=== PATIENT | female | born 1935 | race Hispanic/Latino ===

== ENCOUNTER 2020-04-05 12:42 | Inpatient (IN) | payer MEDICARE ==
[~2020-04-05] VITALS: Ht 152.4 cm; Wt 69.2 kg
[2020-04-05 13:04] LABS: BASOPHILS % (AUTO) 0.6 % (0.0-5.0); EOSINOPHILS % (AUTO) 0.5 % (0.0-8.0); HEMATOCRIT 37.9 % (36-48); LYMPHOCYTES % (AUTO) 25.3 % (21.0-51.0); MEAN CORPUSCULAR HEMOGLOBIN 29.2 pg (27.0-33.0); MEAN CORPUSCULAR HGB CONC 31.9 g/dL (32.0-36.0); MEAN CORPUSCULAR VOLUME 91.5 fL (79-99); MONOCYTES % (AUTO) 7.1 % (3.0-13.0); NEUTROPHILS % (AUTO) 65.9 % (40.0-77.0); PLATELET COUNT (AUTO) 272 K/uL (130-400); RED BLOOD CELL COUNT(AUTO) 4.14 MIL/uL (4.00-5.50); RED CELL DISTRIBUTION WIDTH 19.7 % (11.0-15.5); WHITE BLOOD COUNT (AUTO) 15.8 K/uL (4.8-10.8)
[2020-04-05 13:10] LABS: APPEARANCE,URINE Cloudy (CLEAR); BILIRUBIN,URINE Negative (NEGATIVE); COLOR,URINE Dark Yellow (YELLOW); GLUCOSE, URINE (UA) Negative (NEGATIVE); KETONES,URINE Negative (NEGATIVE); LEUKOCYTE ESTERASE ,URINE Large (NEGATIVE); NITRATE,URINE Negative (NEGATIVE); OCCULT BLOOD,URINE Nonhemolyzed Trace (NEGATIVE); PH,URINE 5.5 (5.0-8.0); PROTEIN,URINE POS 1+ mg/dL (NEGATIVE)
[2020-04-05] MEDS: SODIUM CHLORIDE 0.9% 1000ML 1,000 ML IV SCH (13:15)
[2020-04-05] MEDS ORDERED: ONDANSETRON HCL 4 MG/2 ML VIAL IVP PRN (13:15)
[2020-04-05] MEDS ORDERED: LACTULOSE 20 GM/30 ML UDCUP PO PRN (13:15)
[2020-04-05] MEDS: ZOSYN 3.375GM+NS 50ML 50 ML IV SCH ×2 (13:15→21:15)
[2020-04-05] MEDS ORDERED: ACETAMINOPHEN 325 MG TAB PO PRN (13:15)
[2020-04-05] MEDS ORDERED: DIPHENHYDRAMINE HCL 25 MG CAPSULE PO PRN (13:15)
[2020-04-05 13:19] LABS: CREATININE 1.7 mg/dL (0.5-1.5); POTASSIUM 4.1 mmol/L (3.5-5.1)
[2020-04-05 13:24] LABS: ALBUMIN 2.5 g/dL (3.5-5.0); BILIRUBIN,TOTAL 0.9 mg/dL (0.2-1.0); TOTAL PROTEIN, SERUM 7.1 g/dL (6.0-8.3)
[2020-04-05 13:28] LABS: HEMOGLOBIN A1C 5.6 % (4.0-6.0)
[2020-04-05 13:29] LABS: RBC,URINE 0-1 /HPF (0-1)
[2020-04-05 13:30] LABS: BACTERIA,URINE Few /HPF (None Seen); SQUAMOUS EPITHELIAL CELL,UR 0-2 /HPF (0-2); WBC,URINE 26-50 /HPF (0-1); YEAST,URINE BUDDING Few /HPF (None Seen)
[2020-04-05] MEDS ORDERED: CEFTRIAXONE SODIUM 1 GM ONE (14:21)
[2020-04-05] MEDS ORDERED: SODIUM CHLORIDE 0.9% 1000ML 1,000 ML IV ONE (17:42)
[2020-04-05] MEDS ORDERED: ZOSYN 3.375GM+NS 50ML 50 ML IV ONE (17:43)
[2020-04-05] MEDS ORDERED: FAMOTIDINE 20MG TAB 20 MG TAB ONE (19:28)
[2020-04-05] MEDS: FAMOTIDINE 20MG TAB 20 MG TAB PO SCH (21:00)
[2020-04-06] VITALS (7 sets, daily range): BP systolic 111–143; BP diastolic 61–79
[2020-04-06] MEDS ORDERED: IPRATROPIUM/ALBUTEROL SULFATE 3 ML SOLUTION IH PRN (00:30)
[2020-04-06] MEDS ORDERED: DiphenhydrAMINE HCL 50 MG/ML VIAL IV PRN (00:30)
[2020-04-06] MEDS ORDERED: LIDOCAINE HCL-MPF 1% 2ML VIAL IV PRN (00:30)
[2020-04-06] MEDS ORDERED: POTASSIUM CHLORIDE 20MEQ/100ML 100 ML IV PRN (00:30)
[2020-04-06] MEDS ORDERED: GUAIFENESIN-DM 200/20 MG 10 ML PO PRN (00:30)
[2020-04-06] MEDS ORDERED: NITROGLYCERIN 0.4 MG SL TAB SL PRN (00:30)
[2020-04-06] MEDS ORDERED: CLONIDINE HCL 0.1 MG TABLET PO PRN (00:30)
[2020-04-06] MEDS: SODIUM CHLORIDE 0.9% 1000ML 1,000 ML IV SCH ×3 (04:21→19:15)
[2020-04-06] MEDS: ZOSYN 3.375GM+NS 50ML 50 ML IV SCH ×3 (04:21→20:08)
[2020-04-06 08:36] LABS: BASOPHILS % (AUTO) 0.7 % (0.0-5.0); EOSINOPHILS % (AUTO) 1.3 % (0.0-8.0); HEMATOCRIT 28.2 % (36-48); LYMPHOCYTES % (AUTO) 27.2 % (21.0-51.0); MEAN CORPUSCULAR HEMOGLOBIN 29.8 pg (27.0-33.0); MEAN CORPUSCULAR HGB CONC 32.3 g/dL (32.0-36.0); MEAN CORPUSCULAR VOLUME 92.5 fL (79-99); MONOCYTES % (AUTO) 7.8 % (3.0-13.0); NEUTROPHILS % (AUTO) 61.9 % (40.0-77.0); PLATELET COUNT (AUTO) 199 K/uL (130-400); RED BLOOD CELL COUNT(AUTO) 3.05 MIL/uL (4.00-5.50); RED CELL DISTRIBUTION WIDTH 19.7 % (11.0-15.5); WHITE BLOOD COUNT (AUTO) 10.7 K/uL (4.8-10.8)
--- NOTE | 2020-04-06 09:00 | NUR ---
REPORTED TO ME LOW K OF 3.0, I INFORMED MARCELA ARNETT FOR HOSPITALIST AND WILL COVER PT WITH POTASSIUM PROTOCOL.
[2020-04-06 09:02] LABS: ALBUMIN 1.8 g/dL (3.5-5.0); BILIRUBIN,TOTAL 0.6 mg/dL (0.2-1.0); CREATININE 1.3 mg/dL (0.5-1.5); TOTAL PROTEIN, SERUM 5.3 g/dL (6.0-8.3)
[2020-04-06] MEDS: FAMOTIDINE 20MG TAB 20 MG TAB PO SCH ×2 (09:32→20:08)
[2020-04-06] MEDS ORDERED: LACT10SO9 PO (10:21)
--- NOTE | 2020-04-06 10:21 | NUR ---
REQUEST SENT TO [facility] FOR MEDICAL RECORDS AND GRAND DAUGHTER GAVE PERMISION TO REQUEST; SHE ALSO STATED ONLY HOME MED PT TAKES IS LACTULOSE.
[2020-04-06] MEDS: POTASSIUM CHLORIDE 10% ELIXIR 20 MEQ/15 ML UDCUP PO PRN ×3 (11:25→17:44)
--- NOTE | 2020-04-06 15:46 | NUR ---
CHART CHECK COMPLETED. Pt IS AN 84 Y.O. FEMALE ADMITTED SECONDARY TO AMS, DEHYDRATION, AND SEPSIS. Pt HAS A PAST MEDICAL HISTORY SIGNIFICANT FOR DM, HYPERTENSION, COVID JANUARY 2020, CHOLECYSTECTOMY. Pt CURRENTLY ON REGULAR TEXTURE,THIN LIQUID DIET (HEART HEALTHY). PLEASE REQUEST FORMAL SKILLED SPEECH/SWALLOW EVALUATION IF Pt PRESENTS WITH +S/S OF ASPIRATION SUCH COUGH RESPONSE, THROAT CLEAR, OR WET VOCAL QUALITY DURING P.O. Addendum: 04/06/20 at 1548 by TRINO BOYKIN, [facility] Amended: Links added.
[2020-04-07] MEDS: SODIUM CHLORIDE 0.9% 1000ML 1,000 ML IV SCH (04:00)
[2020-04-07 04:13] VITALS: BP 142/80
[2020-04-07] MEDS: ZOSYN 3.375GM+NS 50ML 50 ML IV SCH ×3 (04:16→21:13)
[2020-04-07 04:49] LABS: BASOPHILS % (AUTO) 0.8 % (0.0-5.0); EOSINOPHILS % (AUTO) 2.7 % (0.0-8.0); HEMATOCRIT 31.5 % (36-48); LYMPHOCYTES % (AUTO) 32.5 % (21.0-51.0); MEAN CORPUSCULAR HEMOGLOBIN 29.2 pg (27.0-33.0); MEAN CORPUSCULAR HGB CONC 31.4 g/dL (32.0-36.0); MEAN CORPUSCULAR VOLUME 92.9 fL (79-99); MONOCYTES % (AUTO) 7.4 % (3.0-13.0); NEUTROPHILS % (AUTO) 55.5 % (40.0-77.0); PLATELET COUNT (AUTO) 240 K/uL (130-400); RED BLOOD CELL COUNT(AUTO) 3.39 MIL/uL (4.00-5.50); RED CELL DISTRIBUTION WIDTH 19.9 % (11.0-15.5); WHITE BLOOD COUNT (AUTO) 12.7 K/uL (4.8-10.8)
[2020-04-07 05:08] LABS: BILIRUBIN,TOTAL 0.7 mg/dL (0.2-1.0); CREATININE 1.2 mg/dL (0.5-1.5); POTASSIUM 3.9 mmol/L (3.5-5.1); TOTAL PROTEIN, SERUM 5.8 g/dL (6.0-8.3)
[2020-04-07] MEDS: FAMOTIDINE 20MG TAB 20 MG TAB PO SCH ×2 (08:03→21:13)
[2020-04-07 08:55] VITALS: BP 133/69
[2020-04-07 10:09] LABS: APPEARANCE,URINE CLOUDY (CLEAR); BILIRUBIN,URINE NEGATIVE (NEGATIVE); COLOR,URINE YELLOW (YELLOW); GLUCOSE, URINE (UA) NEGATIVE (NEGATIVE); KETONES,URINE NEGATIVE (NEGATIVE); LEUKOCYTE ESTERASE ,URINE LARGE (NEGATIVE); NITRATE,URINE NEGATIVE (NEGATIVE); OCCULT BLOOD,URINE LARGE (NEGATIVE); PH,URINE 6.5 (5.0-8.0); PROTEIN,URINE 30 mg/dL (NEGATIVE); UROBILINOGEN,URINE 0.2 mg/dL (0.2-1.0)
[2020-04-07 10:16] LABS: BACTERIA,URINE Few /HPF (None Seen); SQUAMOUS EPITHELIAL CELL,UR Few /HPF (0-2); WBC,URINE 51-100 /HPF (0-1)
[2020-04-07] MEDS ORDERED: FLUCONAZOLE 100 MG TAB PO SCH (12:45)
[2020-04-07 13:33] VITALS: BP 129/74
[2020-04-07 16:42] VITALS: BP 118/66
[2020-04-07 20:26] VITALS: BP 127/66
[2020-04-08] VITALS (7 sets, daily range): BP systolic 95–126; BP diastolic 53–69
[2020-04-08 04:19] LABS: BASOPHILS % (AUTO) 0.7 % (0.0-5.0); EOSINOPHILS % (AUTO) 3.7 % (0.0-8.0); HEMATOCRIT 36.4 % (36-48); LYMPHOCYTES % (AUTO) 33.5 % (21.0-51.0); MEAN CORPUSCULAR HEMOGLOBIN 29.4 pg (27.0-33.0); MEAN CORPUSCULAR HGB CONC 31.9 g/dL (32.0-36.0); MEAN CORPUSCULAR VOLUME 92.2 fL (79-99); MONOCYTES % (AUTO) 6.5 % (3.0-13.0); NEUTROPHILS % (AUTO) 54.7 % (40.0-77.0); PLATELET COUNT (AUTO) 259 K/uL (130-400); RED BLOOD CELL COUNT(AUTO) 3.95 MIL/uL (4.00-5.50); RED CELL DISTRIBUTION WIDTH 19.9 % (11.0-15.5); WHITE BLOOD COUNT (AUTO) 13.7 K/uL (4.8-10.8)
[2020-04-08 04:50] LABS: ALBUMIN 2.2 g/dL (3.5-5.0); BILIRUBIN,TOTAL 0.6 mg/dL (0.2-1.0); POTASSIUM 4.2 mmol/L (3.5-5.1); TOTAL PROTEIN, SERUM 6.5 g/dL (6.0-8.3)
[2020-04-08] MEDS: ZOSYN 3.375GM+NS 50ML 50 ML IV SCH ×3 (05:22→20:30)
--- NOTE | 2020-04-08 05:33 | NUR ---
IV restart to left forearm, 22 francis with good blood return. Dressing applied per protocol. AM care provided. No new variance this shift, pt remained A/O x 1. Blood sugar is 78 this morning. Apple juice given, pending breakfast.
[2020-04-08] MEDS: FAMOTIDINE 20MG TAB 20 MG TAB PO SCH ×2 (08:35→20:31)
--- NOTE | 2020-04-08 11:26 | NUR ---
UPDATED DAUGHTER ON DC PLANS. NO CONSENT ON ANY REFERRAL TO SNF YET. SUGGESTED [facility]NR IN [place] BECAUSE IT IS IN NETWORK WIHT THE INSURANCE, BUT GRANDDAUGHTER MARINA DID NOT WANT TO CONSDER YET. WANTS TO INVESTIGATE ALL FACILITIES THAT TAKE ALLWELL. CALL TO DAVID MAHAN [phone]- THEY DO CALL TO KATIE MCKEON [phone]- THEY DO NOT CALL TO [facility]-NO NOT GAYATHRI VOSS, NOT THIS INFO PASSED TO MARINA VIA TEXT. AWAITING RESPONSE Addendum: 04/08/20 at 1153 by ZOE CORTES RN CM Amended: Links added.
[2020-04-08] MEDS: FLUCONAZOLE 100 MG TAB PO SCH (12:38)
--- NOTE | 2020-04-08 16:30 | NUR ---
NO CONSENT YET FOR SNF
--- NOTE | 2020-04-08 20:00 | NUR ---
assessment patient awake, alert, ox1, no sob, no c/o pain at this time, no sob at this time, turn patient q2 hours, f/c to gravity drainage with cloudy urine, keep siderails up x3 for safety precautions and bedalarm intact
[2020-04-08] MEDS: LACTULOSE 20 GM/30 ML UDCUP PO SCH (20:31)
[2020-04-09 04:02] VITALS: BP 103/52
[2020-04-09] MEDS: ZOSYN 3.375GM+NS 50ML 50 ML IV SCH ×3 (05:20→21:45)
[2020-04-09 06:21] LABS: BASOPHILS % (AUTO) 0.8 % (0.0-5.0); EOSINOPHILS % (AUTO) 6.4 % (0.0-8.0); LYMPHOCYTES % (AUTO) 37.2 % (21.0-51.0); MEAN CORPUSCULAR HEMOGLOBIN 29.2 pg (27.0-33.0); MEAN CORPUSCULAR HGB CONC 32.3 g/dL (32.0-36.0); MEAN CORPUSCULAR VOLUME 90.6 fL (79-99); MONOCYTES % (AUTO) 6.4 % (3.0-13.0); NEUTROPHILS % (AUTO) 48.1 % (40.0-77.0); PLATELET COUNT (AUTO) 233 K/uL (130-400); RED BLOOD CELL COUNT(AUTO) 3.42 MIL/uL (4.00-5.50); RED CELL DISTRIBUTION WIDTH 19.9 % (11.0-15.5); WHITE BLOOD COUNT (AUTO) 10.6 K/uL (4.8-10.8)
[2020-04-09 06:43] LABS: ALBUMIN 1.8 g/dL (3.5-5.0); BILIRUBIN,TOTAL 0.4 mg/dL (0.2-1.0); POTASSIUM 3.3 mmol/L (3.5-5.1); TOTAL PROTEIN, SERUM 5.3 g/dL (6.0-8.3)
[2020-04-09] MEDS: POTASSIUM CHLORIDE 10% ELIXIR 20 MEQ/15 ML UDCUP PO PRN ×3 (06:52→18:24)
[2020-04-09] MEDS: LACTULOSE 20 GM/30 ML UDCUP PO SCH ×2 (07:56→19:25)
[2020-04-09] MEDS: FAMOTIDINE 20MG TAB 20 MG TAB PO SCH ×2 (07:57→20:07)
[2020-04-09] MEDS: FLUCONAZOLE 100 MG TAB PO SCH (07:57)
[2020-04-09 08:00] VITALS: BP 122/70
--- NOTE | 2020-04-09 09:00 | NUR ---
SNF/HNR: Received call this am from andrew Kilgore. She mentions that family has decided to refer pt to [facility]. telephone consent obtained. Clinical/PASRR faxed to [facility]. Spoke talib Ramirez-Liaison, she mentions will review information and submit to insurance for auth. CN updated. CM to continue to follow.
[2020-04-09 11:00] VITALS: BP 125/73
[2020-04-09 16:00] VITALS: BP 124/65
[2020-04-09 20:00] VITALS: BP 107/63
--- NOTE | 2020-04-09 20:00 | NUR ---
assessment patient more awake and talkative, ox1, no sob, no c/o pain at this time, turn patient q2 hours, no teaching performed , unable to comprehend teaching
[2020-04-09 23:36] VITALS: BP 120/70
[2020-04-10 04:00] VITALS: BP 113/80
[2020-04-10 04:11] LABS: BASOPHILS % (AUTO) 0.9 % (0.0-5.0); EOSINOPHILS % (AUTO) 6.1 % (0.0-8.0); HEMATOCRIT 33.3 % (36-48); MEAN CORPUSCULAR HEMOGLOBIN 28.9 pg (27.0-33.0); MEAN CORPUSCULAR HGB CONC 31.5 g/dL (32.0-36.0); MEAN CORPUSCULAR VOLUME 91.7 fL (79-99); MONOCYTES % (AUTO) 8.2 % (3.0-13.0); NEUTROPHILS % (AUTO) 49.5 % (40.0-77.0); PLATELET COUNT (AUTO) 222 K/uL (130-400); RED BLOOD CELL COUNT(AUTO) 3.63 MIL/uL (4.00-5.50); RED CELL DISTRIBUTION WIDTH 20.2 % (11.0-15.5); WHITE BLOOD COUNT (AUTO) 13.6 K/uL (4.8-10.8)
[2020-04-10 04:28] LABS: CREATININE 1.1 mg/dL (0.5-1.5); POTASSIUM 4.1 mmol/L (3.5-5.1)
[2020-04-10] MEDS: ZOSYN 3.375GM+NS 50ML 50 ML IV SCH ×3 (05:02→21:49)
[2020-04-10 08:00] VITALS: BP 105/50
[2020-04-10] MEDS: LACTULOSE 20 GM/30 ML UDCUP PO SCH ×2 (10:19→19:53)
[2020-04-10] MEDS: FLUCONAZOLE 100 MG TAB PO SCH (10:19)
[2020-04-10] MEDS: FAMOTIDINE 20MG TAB 20 MG TAB PO SCH ×2 (10:19→19:54)
[2020-04-10 11:00] VITALS: BP 105/53
[2020-04-10 16:00] VITALS: BP 125/71
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
[2020-04-10 19:56] VITALS: BP 111/60
[2020-04-10 23:56] VITALS: BP 122/73
[2020-04-11 03:41] VITALS: BP 123/66
[2020-04-11] MEDS: ZOSYN 3.375GM+NS 50ML 50 ML IV SCH ×3 (04:42→22:54)
[2020-04-11 05:01] LABS: BASOPHILS % (AUTO) 0.8 % (0.0-5.0); EOSINOPHILS % (AUTO) 6.9 % (0.0-8.0); HEMATOCRIT 32.4 % (36-48); LYMPHOCYTES % (AUTO) 25.8 % (21.0-51.0); MEAN CORPUSCULAR HEMOGLOBIN 29.1 pg (27.0-33.0); MEAN CORPUSCULAR HGB CONC 32.1 g/dL (32.0-36.0); MEAN CORPUSCULAR VOLUME 90.8 fL (79-99); MONOCYTES % (AUTO) 8.1 % (3.0-13.0); PLATELET COUNT (AUTO) 202 K/uL (130-400); RED BLOOD CELL COUNT(AUTO) 3.57 MIL/uL (4.00-5.50); RED CELL DISTRIBUTION WIDTH 19.9 % (11.0-15.5); WHITE BLOOD COUNT (AUTO) 14.5 K/uL (4.8-10.8)
[2020-04-11 05:10] LABS: CREATININE 1.1 mg/dL (0.5-1.5)
[2020-04-11 08:33] VITALS: BP 115/66
[2020-04-11] MEDS: LACTULOSE 20 GM/30 ML UDCUP PO SCH ×2 (09:14→19:31)
[2020-04-11] MEDS: FLUCONAZOLE 100 MG TAB PO SCH (09:14)
[2020-04-11] MEDS: FAMOTIDINE 20MG TAB 20 MG TAB PO SCH ×2 (09:14→19:31)
--- NOTE | 2020-04-11 09:15 | NUR ---
CHART REVIEWED, ANTICIPATING DISCHARGE TO [facility] TODAY [facility], WILL SEND UPDATED AND MED REC WHEN AVAILABLE AND WILL ARRANGE EMS TRANSPORT. WILL FOLLOW WITH MENG NUNES. KATELIN, Addendum: 04/11/20 at 0917 by ZOE CORTES RN CM Amended: Links added.
[2020-04-11 11:38] VITALS: BP 106/72
[2020-04-11 17:00] VITALS: BP 108/50
[2020-04-11 20:00] VITALS: BP 101/62
[2020-04-11 23:33] VITALS: BP 121/63
--- NOTE | 2020-04-12 01:25 | NUR ---
COVID POSITIVE PATIENT'S COVID-19 PCR RESULTS CAME BACK POSITIVE. Gonzalo THOMASON NOTIFIED OF RESULTS AND GAVE ORDERS TO TRANSFER TO COVID UNIT. REPORT GIVEN TO SPARKLE NUNES AND PATIENT WITH ALL BELONGINGS TRANSPORTED TO ROOM 432. STAFF WILL INFORM FAMILY OF TRANSFER IN AM.
[2020-04-12 04:45] VITALS: BP 101/62
[2020-04-12] MEDS: ZOSYN 3.375GM+NS 50ML 50 ML IV SCH ×3 (05:25→20:04)
[2020-04-12 08:30] VITALS: BP 138/71
[2020-04-12] MEDS: LACTULOSE 20 GM/30 ML UDCUP PO SCH ×2 (09:26→20:04)
[2020-04-12] MEDS: FAMOTIDINE 20MG TAB 20 MG TAB PO SCH ×2 (09:26→20:04)
[2020-04-12] MEDS: FLUCONAZOLE 100 MG TAB PO SCH (09:26)
[2020-04-12 09:49] LABS: BASOPHILS % (AUTO) 0.8 % (0.0-5.0); EOSINOPHILS % (AUTO) 5.8 % (0.0-8.0); HEMATOCRIT 33.6 % (36-48); LYMPHOCYTES % (AUTO) 31.5 % (21.0-51.0); MEAN CORPUSCULAR HEMOGLOBIN 29.5 pg (27.0-33.0); MEAN CORPUSCULAR HGB CONC 32.4 g/dL (32.0-36.0); MEAN CORPUSCULAR VOLUME 90.8 fL (79-99); MONOCYTES % (AUTO) 7.1 % (3.0-13.0); NEUTROPHILS % (AUTO) 53.5 % (40.0-77.0); PLATELET COUNT (AUTO) 186 K/uL (130-400); RED CELL DISTRIBUTION WIDTH 19.8 % (11.0-15.5); WHITE BLOOD COUNT (AUTO) 12.8 K/uL (4.8-10.8)
[2020-04-12 10:03] LABS: CREATININE 1.1 mg/dL (0.5-1.5); POTASSIUM 3.8 mmol/L (3.5-5.1)
--- NOTE | 2020-04-12 11:07 | NUR ---
RDSCREEN - LOS X 7 Pt admitted with AMS, Dehydration, Sepsis. PMH of DM, HTN, UTI, Dementia, COVID-19. Pt tolerating Heart Healthy diet order with no report of GI distress, Fair PO intake at 50-75%. Recommend Ensure QD Recommend continue Heart Healthy diet order RD to continue to monitor. Please notify as additional nutrition concerns arise. Thank you.
[2020-04-12 12:15] VITALS: BP 109/67
--- NOTE | 2020-04-12 14:02 | NUR ---
CM Note: HNR pending approval CM spoke to Ashley Gracia, received covid result. Pt currently pending approval at this time. Send request to [facility] for EMS transport today, confirmation received. [facility] arranged and faxed for today, primary nurse to call [facility] once pt ready to DC. Primary nurse aware. CM to cont to follow up.
[2020-04-12 16:30] VITALS: BP 134/54
[2020-04-12 19:55] VITALS: BP 115/72
[2020-04-12 23:30] VITALS: BP 121/76
[2020-04-13 05:50] VITALS: BP 127/76
[2020-04-13] MEDS: ZOSYN 3.375GM+NS 50ML 50 ML IV SCH ×3 (06:08→19:59)
[2020-04-13 06:48] LABS: BASOPHILS % (AUTO) 0.8 % (0.0-5.0); EOSINOPHILS % (AUTO) 5.8 % (0.0-8.0); HEMATOCRIT 33.4 % (36-48); LYMPHOCYTES % (AUTO) 35.7 % (21.0-51.0); MEAN CORPUSCULAR HEMOGLOBIN 29.2 pg (27.0-33.0); MEAN CORPUSCULAR HGB CONC 32.3 g/dL (32.0-36.0); MEAN CORPUSCULAR VOLUME 90.3 fL (79-99); MONOCYTES % (AUTO) 8.8 % (3.0-13.0); NEUTROPHILS % (AUTO) 47.1 % (40.0-77.0); PLATELET COUNT (AUTO) 226 K/uL (130-400); RED CELL DISTRIBUTION WIDTH 19.9 % (11.0-15.5); WHITE BLOOD COUNT (AUTO) 15.1 K/uL (4.8-10.8)
[2020-04-13 07:28] LABS: CREATININE 1.2 mg/dL (0.5-1.5); POTASSIUM 3.4 mmol/L (3.5-5.1); THYROID STIMULATING HORMONE 2.96 uIU/mL (0.36-3.74)
[2020-04-13 08:00] VITALS: BP 119/65
[2020-04-13] MEDS: FLUCONAZOLE 100 MG TAB PO SCH (09:07)
[2020-04-13] MEDS: LACTULOSE 20 GM/30 ML UDCUP PO SCH ×2 (09:07→19:58)
[2020-04-13] MEDS: FAMOTIDINE 20MG TAB 20 MG TAB PO SCH ×2 (09:08→19:58)
[2020-04-13 09:37] LABS: ALBUMIN 2.1 g/dL (3.5-5.0); MAGNESIUM 2.3 mg/dL (1.80-2.40)
--- NOTE | 2020-04-13 12:19 | NUR ---
CM Note: HNR approval CM spoke to Ashley Gracia, pt has approval. EMS arranged and faxed for today, primary nurse to call [facility] once pt ready to DC. Primary nurse aware. Pt pending Dr Burns consult today re: AMS, confusion. CM to cont to follow up.
[2020-04-13 12:51] VITALS: BP 116/87
[2020-04-13 16:31] VITALS: BP 107/63
[2020-04-13 19:55] VITALS: BP 128/78
[2020-04-13] MEDS: ENOXAPARIN SODIUM 30 MG/0.3 ML SQ SCH (19:58)
[2020-04-13 23:05] VITALS: BP 116/71
[2020-04-14 04:02] VITALS: BP 109/72
[2020-04-14] MEDS: ZOSYN 3.375GM+NS 50ML 50 ML IV SCH ×3 (05:28→21:19)
[2020-04-14 06:51] LABS: CREATININE 1.3 mg/dL (0.5-1.5); MAGNESIUM 1.8 mg/dL (1.80-2.40); POTASSIUM 3.5 mmol/L (3.5-5.1)
[2020-04-14 08:30] VITALS: BP 124/78
[2020-04-14] MEDS: LACTULOSE 20 GM/30 ML UDCUP PO SCH ×2 (08:34→21:19)
[2020-04-14] MEDS: ENOXAPARIN SODIUM 30 MG/0.3 ML SQ SCH (08:34)
[2020-04-14] MEDS: FAMOTIDINE 20MG TAB 20 MG TAB PO SCH ×2 (08:34→21:19)
[2020-04-14] MEDS: FLUCONAZOLE 100 MG TAB PO SCH (08:34)
[2020-04-14] MEDS ORDERED: SODIUM CHLORIDE 0.9% 1000ML 1,000 ML IV ONE (11:00)
[2020-04-14 12:00] VITALS: BP 106/76
--- NOTE | 2020-04-14 13:19 | NUR ---
RD UPDATE Pt with Poor PO intake. No report of GI distress. Pt with AMS. WBC 15.1, GFR 41, BG 108, Ca 10.8, Alb 2.1. Recommend trial of Ensure TID with meals. RD to continue to monitor.
[2020-04-14 16:29] VITALS: BP 116/53
[2020-04-14] MEDS ORDERED: LACTATED RINGERS 1000ML 1,000 ML IV SCH (18:15)
[2020-04-14 20:26] VITALS: BP 124/68
[2020-04-14] MEDS: SODIUM CHLORIDE 0.9% 1000ML 1,000 ML IV SCH (21:19)
[2020-04-14 23:15] VITALS: BP 113/76
[2020-04-15 04:35] VITALS: BP 129/70
[2020-04-15 05:09] LABS: ALBUMIN 1.7 g/dL (3.5-5.0); BILIRUBIN,TOTAL 0.4 mg/dL (0.2-1.0); CREATININE 1.3 mg/dL (0.5-1.5); PHOSPHORUS 2.8 mg/dL (2.5-4.9); POTASSIUM 3.6 mmol/L (3.5-5.1); TOTAL PROTEIN, SERUM 5.4 g/dL (6.0-8.3)
[2020-04-15] MEDS: ZOSYN 3.375GM+NS 50ML 50 ML IV SCH (05:20)
[2020-04-15 07:00] VITALS: BP 110/72
[2020-04-15] MEDS: ENOXAPARIN SODIUM 30 MG/0.3 ML SQ SCH (09:00)
[2020-04-15] MEDS: FLUCONAZOLE 100 MG TAB PO SCH (09:00)
[2020-04-15] MEDS: LACTULOSE 20 GM/30 ML UDCUP PO SCH ×2 (09:00→22:15)
[2020-04-15] MEDS: FAMOTIDINE 20MG TAB 20 MG TAB PO SCH ×2 (09:00→22:15)
[2020-04-15] MEDS: SODIUM CHLORIDE 0.9% 1000ML 1,000 ML IV SCH ×2 (09:20→22:15)
[2020-04-15 11:30] VITALS: BP 129/63
[2020-04-15] MEDS ORDERED: PHARMACY COMMUNICATION MISC SCH (15:00)
[2020-04-15 16:00] VITALS: BP 103/68
[2020-04-15 20:10] VITALS: BP 120/64
[2020-04-15 23:12] VITALS: BP 109/54
[2020-04-16 04:45] VITALS: BP 136/75
[2020-04-16 08:00] VITALS: BP 125/65
[2020-04-16 08:09] LABS: ALBUMIN 1.7 g/dL (3.5-5.0); BILIRUBIN,TOTAL 0.3 mg/dL (0.2-1.0); CREATININE 1.3 mg/dL (0.5-1.5); MAGNESIUM 1.5 mg/dL (1.80-2.40); POTASSIUM 3.1 mmol/L (3.5-5.1)
[2020-04-16] MEDS ORDERED: DEXTROSE 5 % AND 0.9 % NACL 1,000 ML IV SCH (08:30)
[2020-04-16] MEDS: LACTULOSE 20 GM/30 ML UDCUP PO SCH ×2 (09:00→23:19)
[2020-04-16] MEDS: FLUCONAZOLE 100 MG TAB PO SCH (09:12)
[2020-04-16] MEDS: FAMOTIDINE 20MG TAB 20 MG TAB PO SCH ×2 (09:12→23:20)
[2020-04-16] MEDS: ENOXAPARIN SODIUM 30 MG/0.3 ML SQ SCH (09:12)
[2020-04-16] MEDS ORDERED: PHARMACY COMMUNICATION MISC SCH (09:15)
[2020-04-16] MEDS: D5 NS WITH 20 mEq KCl 1000ML 1,000 ML IV SCH ×2 (11:45→21:45)
[2020-04-16 12:00] VITALS: BP 143/87
[2020-04-16] MEDS ORDERED: ALBUTEROL INHALER 90MCG/INH IH PRN (13:45)
[2020-04-16] MEDS: POTASSIUM CHLORIDE 10% ELIXIR 20 MEQ/15 ML UDCUP PO PRN ×3 (13:59→17:16)
[2020-04-16] MEDS: MAGNESIUM 2GM PREMIX 50ML 50 ML IV SCH (14:02)
[2020-04-16 16:00] VITALS: BP 117/66
[2020-04-16 19:50] VITALS: BP 110/35
[2020-04-16 20:15] VITALS: BP 130/74
[2020-04-16 20:17] LABS: MAGNESIUM 2.4 mg/dL (1.80-2.40); POTASSIUM 4.6 mmol/L (3.5-5.1)
[2020-04-16] MEDS ORDERED: D5W-1/2 NS/20MEQ KCL 1,000 ML IV ONE (23:09)
[2020-04-17 00:37] VITALS: BP 110/66
[2020-04-17 04:35] VITALS: BP 138/89
[2020-04-17 06:34] VITALS: BP 127/94
[2020-04-17 06:49] LABS: EOSINOPHILS % (AUTO) 6.6 % (0.0-8.0); HEMATOCRIT 29.1 % (36-48); LYMPHOCYTES % (AUTO) 36.5 % (21.0-51.0); MEAN CORPUSCULAR HEMOGLOBIN 29.2 pg (27.0-33.0); MEAN CORPUSCULAR HGB CONC 31.3 g/dL (32.0-36.0); MEAN CORPUSCULAR VOLUME 93.3 fL (79-99); MONOCYTES % (AUTO) 6.9 % (3.0-13.0); NEUTROPHILS % (AUTO) 48.1 % (40.0-77.0); PLATELET COUNT (AUTO) 210 K/uL (130-400); RED BLOOD CELL COUNT(AUTO) 3.12 MIL/uL (4.00-5.50); RED CELL DISTRIBUTION WIDTH 19.8 % (11.0-15.5); WHITE BLOOD COUNT (AUTO) 12.4 K/uL (4.8-10.8)
[2020-04-17 07:39] LABS: ALBUMIN 1.7 g/dL (3.5-5.0); BILIRUBIN,TOTAL 0.2 mg/dL (0.2-1.0); CREATININE 1.2 mg/dL (0.5-1.5); MAGNESIUM 2.3 mg/dL (1.80-2.40); TOTAL PROTEIN, SERUM 5.1 g/dL (6.0-8.3)
[2020-04-17] MEDS: LACTULOSE 20 GM/30 ML UDCUP PO SCH ×2 (09:00→22:29)
[2020-04-17] MEDS: FAMOTIDINE 20MG TAB 20 MG TAB PO SCH ×2 (10:00→22:29)
[2020-04-17] MEDS: FLUCONAZOLE 100 MG TAB PO SCH (10:00)
[2020-04-17] MEDS: ENOXAPARIN SODIUM 30 MG/0.3 ML SQ SCH (10:00)
[2020-04-17 11:00] VITALS: BP 132/62
[2020-04-17] MEDS: DEXTROSE 5%-WATER 1,000 ML IV SCH (12:30)
[2020-04-17 16:00] VITALS: BP 147/69
[2020-04-17 19:45] VITALS: BP 141/67
[2020-04-18] MEDS: DEXTROSE 5%-WATER 1,000 ML IV SCH ×2 (02:21→11:37)
[2020-04-18 04:45] VITALS: BP 141/61
[2020-04-18 05:40] LABS: HEMATOCRIT 28.5 % (36-48); MEAN CORPUSCULAR HEMOGLOBIN 29.4 pg (27.0-33.0); MEAN CORPUSCULAR HGB CONC 31.9 g/dL (32.0-36.0); MEAN CORPUSCULAR VOLUME 91.9 fL (79-99); PLATELET COUNT (AUTO) 241 K/uL (130-400); RED CELL DISTRIBUTION WIDTH 19.7 % (11.0-15.5); WHITE BLOOD COUNT (AUTO) 12.6 K/uL (4.8-10.8)
[2020-04-18 06:18] LABS: PHOSPHORUS 2.3 mg/dL (2.5-4.9); POTASSIUM 4.2 mmol/L (3.5-5.1)
[2020-04-18 06:29] LABS: % IRON SATURATION 46.6 % (22-44)
[2020-04-18 06:31] VITALS: BP 180/96
[2020-04-18 06:36] LABS: BAND NEUTROPHILS % (MANUAL) 2 % (0-2); BASOPHILS % (MANUAL) 2 % (0-2); EOSINOPHILS % (MANUAL) 5 % (1-6); LYMPHOCYTES % (MANUAL) 38 % (22-44); MAN.DIFF COMMENT-IMPRESSION MANUAL DIFFERENTIAL; MONOCYTES % (MANUAL) 6 % (2-9); PLATELET MORPHOLOGY COMMENT ADEQUATE; SEGMENTED NEUTROPHILS % 47 % (40-70)
[2020-04-18] MEDS: LACTULOSE 20 GM/30 ML UDCUP PO SCH ×2 (09:00→20:48)
[2020-04-18] MEDS: ENOXAPARIN SODIUM 30 MG/0.3 ML SQ SCH (10:05)
[2020-04-18] MEDS: FAMOTIDINE 20MG TAB 20 MG TAB PO SCH ×2 (10:05→20:48)
[2020-04-18] MEDS: FLUCONAZOLE 100 MG TAB PO SCH (10:05)
[2020-04-18 11:00] VITALS: BP 138/73
--- NOTE | 2020-04-18 11:45 | NUR ---
DYSPHAGIA EVAL COMPLETED. -S/S OF ASPIRATION. RECOMMEND MECHANICAL SOFT, THIN LIQUIDS; PILLS WHOLE WITH LIQUIDS. DIET CHANGE PROPHYLAXIS AT THIS TIME. NURSE KEKE REPORTS LOW P.O. SCOREKEEPER ON CASE AT THIS TIME. Addendum: 04/18/20 at 1527 by TRINO BOYKIN, [facility] ST Amended: Links added.
--- NOTE | 2020-04-18 15:43 | NUR ---
advised dr. malloy that INSURANCE auth FOR SNF will today. no dc order as yet. will followt Addendum: 04/20/20 at 1544 by ZOE CORTES RN CM Amended: Links added.
[2020-04-18] MEDS ORDERED: PHARMACY COMMUNICATION MISC SCH (15:45)
[2020-04-18 16:00] VITALS: BP 98/67
[2020-04-18] MEDS ORDERED: PAMIDRONATE DISODIUM IV SCH (16:00)
[2020-04-18] MEDS ORDERED: SODIUM CHLORIDE 0.9% IV SCH (16:00)
--- NOTE | 2020-04-18 19:08 | NUR ---
New IVs placed on shift by hemodialysis charge nurse. Oncoming RN made aware. New drip (see EMAR) initiated
--- NOTE | 2020-04-18 20:00 | NUR ---
Received report from Anita, resumed care, 20 g IV in left antecubital and 22 g left wrist IV noted, wrapped with gauze, patient resting swallowed oral medications with no difficulties, BP 97/49 Rocephin 1 gm IVP and Lactated ringers 500 ml bolus KVO then Lactated ringers @ 75 ml q13 hrs physician orders verified. Pt. lying in bed sleeping, bed locked and in lowest position call light in reach.
[2020-04-18 21:32] VITALS: BP 97/49
[2020-04-18] MEDS ORDERED: LACTATED RINGERS 1000ML IV SCH (21:45)
[2020-04-18] MEDS ORDERED: CEFTRIAXONE SODIUM 1 GM IVP SCH (21:45)
[2020-04-18] MEDS: LACTATED RINGERS 1000ML 1,000 ML IV SCH (22:29)
[2020-04-19 00:46] VITALS: BP 137/90
[2020-04-19 06:03] VITALS: BP 148/79
[2020-04-19 07:01] LABS: CREATININE 1.1 mg/dL (0.5-1.5); MAGNESIUM 1.8 mg/dL (1.80-2.40); PHOSPHORUS 3.3 mg/dL (2.5-4.9); POTASSIUM 4.6 mmol/L (3.5-5.1)
[2020-04-19 07:30] VITALS: BP 153/68
[2020-04-19] MEDS: LACTULOSE 20 GM/30 ML UDCUP PO SCH ×2 (08:33→21:59)
[2020-04-19] MEDS: FLUCONAZOLE 100 MG TAB PO SCH (08:52)
[2020-04-19] MEDS: ENOXAPARIN SODIUM 30 MG/0.3 ML SQ SCH (08:52)
[2020-04-19] MEDS: FAMOTIDINE 20MG TAB 20 MG TAB PO SCH ×2 (08:52→21:59)
[2020-04-19 11:00] VITALS: BP 109/76
[2020-04-19] MEDS: LACTATED RINGERS 1000ML 1,000 ML IV SCH (12:27)
[2020-04-19 16:00] VITALS: BP 113/73
[2020-04-19 21:17] VITALS: BP 110/59
[2020-04-20 01:20] VITALS: BP 108/64
[2020-04-20] MEDS: LACTATED RINGERS 1000ML 1,000 ML IV SCH (01:25)
[2020-04-20 06:39] VITALS: BP 136/82
[2020-04-20] MEDS ORDERED: DEXTROSE 5%-WATER 1,000 ML IV SCH (08:45)
[2020-04-20] MEDS: LACTULOSE 20 GM/30 ML UDCUP PO SCH ×2 (09:00→21:42)
[2020-04-20] MEDS: FAMOTIDINE 20MG TAB 20 MG TAB PO SCH ×2 (09:50→21:42)
[2020-04-20 09:51] LABS: ALBUMIN 1.9 g/dL (3.5-5.0); BILIRUBIN,TOTAL 0.3 mg/dL (0.2-1.0); CREATININE 1.1 mg/dL (0.5-1.5); POTASSIUM 4.7 mmol/L (3.5-5.1); TOTAL PROTEIN, SERUM 5.8 g/dL (6.0-8.3)
[2020-04-20] MEDS: DEXTROSE 5 % AND 0.9 % NACL 1,000 ML IV SCH ×2 (09:51→13:10)
[2020-04-20] MEDS: ENOXAPARIN SODIUM 30 MG/0.3 ML SQ SCH (09:51)
[2020-04-20 12:59] VITALS: BP 106/83
--- NOTE | 2020-04-20 15:50 | NUR ---
RD FOLLOW UP Pt continues with poor PO >1 week. RN reports Pt with increased intake when family brought breakfast yesterday, however Poor PO this AM despite family's efforts. Pt sips Ensure throughout the day and may finish 1-1.5 bottles per day. Monitored labs: Ca 10.6, GFR 50, Alb 2.9. D5 initiated [id number]. No report of weight loss. Poor PO > 1 week; Recommend Appetite stimulant If Poor PO continues, recommend supplemental alternate means nutrition RD to continue to monitor. Please notify as additional nutrition concerns arise. Thank you. Addendum: 04/20/20 at [address] Amended: Links added.
[2020-04-20 15:55] VITALS: BP 137/79
[2020-04-20 20:45] VITALS: BP 140/88
[2020-04-21 00:43] VITALS: BP 148/73
[2020-04-21] MEDS: DEXTROSE 5 % AND 0.9 % NACL 1,000 ML IV SCH ×3 (04:02→19:15)
[2020-04-21 05:23] LABS: ALBUMIN 1.7 g/dL (3.5-5.0); BILIRUBIN,TOTAL 0.2 mg/dL (0.2-1.0); CREATININE 0.9 mg/dL (0.5-1.5); MAGNESIUM 1.8 mg/dL (1.80-2.40); POTASSIUM 3.7 mmol/L (3.5-5.1); TOTAL PROTEIN, SERUM 5.2 g/dL (6.0-8.3)
--- NOTE | 2020-04-21 05:28 | NUR ---
Received report per Anita pt. removed IV. New IV 20g inserted per Madhuri in left forearm site cleaned with chlorhexidine and flushed w/ 10ml normal saline, no s/s of redness, warmth or infiltration noted. Site wrapped with gauze. Pt verbalizes no c/o discomfort. Will continue to monitor
[2020-04-21 06:01] VITALS: BP 138/79
[2020-04-21 08:33] VITALS: BP 139/70
[2020-04-21] MEDS: LACTULOSE 20 GM/30 ML UDCUP PO SCH ×2 (08:53→20:31)
[2020-04-21] MEDS: FAMOTIDINE 20MG TAB 20 MG TAB PO SCH ×2 (08:53→20:31)
[2020-04-21] MEDS: ENOXAPARIN SODIUM 30 MG/0.3 ML SQ SCH (08:54)
--- NOTE | 2020-04-21 10:19 | NUR ---
RD UPDATE Pt continues refusal to eat. Appetite stimulant contraindicated with COVID, as per MD. Ensure TID in place. Recommend protein supplementation with 60mL ProMod BID. RD to continue to monitor.
[2020-04-21 11:58] VITALS: BP 135/78
--- NOTE | 2020-04-21 14:28 | NUR ---
FOLLOW UP COMPLETED. Pt TOLERATING CURRENT DIET WITH LOW P.O. PER NURSE, Pt ABLE TO TAKE MEDICATIONS WITH NO OVERT S/S OF ASPIRATION. HOME HELP AIDE COORDINATED WITH TIERNEY BLEDSOE DUE TO LOW P.O. SWALLOW FUNCTION PRESENT AND OK FOR CONTINUED P.O. DIET; POOR APPETITE AT THIS TIME. Addendum: 04/21/20 at 1429 by TRINO BOYKIN, [facility] Amended: Links added.
[2020-04-21 16:17] VITALS: BP 133/67
[2020-04-21 19:00] VITALS: BP 134/59
[2020-04-22 00:48] VITALS: BP 94/60
[2020-04-22 00:50] VITALS: BP 123/62
[2020-04-22 03:00] VITALS: BP 134/67
[2020-04-22] MEDS: DEXTROSE 5 % AND 0.9 % NACL 1,000 ML IV SCH ×2 (03:17→16:04)
[2020-04-22 05:23] LABS: BASOPHILS % (AUTO) 0.9 % (0.0-5.0); EOSINOPHILS % (AUTO) 5.4 % (0.0-8.0); HEMATOCRIT 27.5 % (36-48); LYMPHOCYTES % (AUTO) 33.2 % (21.0-51.0); MEAN CORPUSCULAR HEMOGLOBIN 29.4 pg (27.0-33.0); MONOCYTES % (AUTO) 8.8 % (3.0-13.0); NEUTROPHILS % (AUTO) 51.3 % (40.0-77.0); PLATELET COUNT (AUTO) 241 K/uL (130-400); RED BLOOD CELL COUNT(AUTO) 2.99 MIL/uL (4.00-5.50); RED CELL DISTRIBUTION WIDTH 18.6 % (11.0-15.5); WHITE BLOOD COUNT (AUTO) 10.9 K/uL (4.8-10.8)
[2020-04-22 05:39] LABS: CREATININE 0.8 mg/dL (0.5-1.5); MAGNESIUM 1.3 mg/dL (1.80-2.40); PHOSPHORUS 2.3 mg/dL (2.5-4.9); POTASSIUM 3.1 mmol/L (3.5-5.1)
[2020-04-22] MEDS: LACTULOSE 20 GM/30 ML UDCUP PO SCH (08:50)
[2020-04-22] MEDS: FAMOTIDINE 20MG TAB 20 MG TAB PO SCH (08:52)
[2020-04-22] MEDS: ENOXAPARIN SODIUM 30 MG/0.3 ML SQ SCH (08:52)
[2020-04-22 09:04] VITALS: BP 151/73
[2020-04-22] MEDS: MAGNESIUM 2GM PREMIX 50ML 50 ML IV SCH (11:44)
[2020-04-22 12:00] VITALS: BP 131/84
[2020-04-22 16:00] VITALS: BP 145/80
--- NOTE | 2020-04-22 17:02 | NUR ---
Pt transported to [facility] via EMS ground in [place]. Pt remains in unchanged stable condition. Family notified of transfer, all questions answered and concerns addressed for EMS personnel and family.
== END 2020-04-22 17:00 | DRG 70 ==
LOC: EDH 12:42 → EDHIP 13:30 → 3BH 21:49 → 4AH 04-12 01:15 → 2DH 04-21 18:36
PROVIDERS: ADMIT Internal Medicine; ATTEND Internal Medicine
DX: G93.41 Metabolic encephalopathy (principal); U07.1 COVID-19; J12.89 Other viral pneumonia; N39.0 Urinary tract infection, site not specified; E44.0 Moderate protein-calorie malnutrition; N17.9 Acute kidney failure, unspecified; E86.0 Dehydration; I10 Essential (primary) hypertension; E11.9 Type 2 diabetes mellitus without complications; D64.9 Anemia, unspecified; E11.649 Type 2 diabetes mellitus with hypoglycemia without coma; R53.81 Other malaise; E83.52 Hypercalcemia; F03.90 Unspecified dementia, unspecified severity, without behavioral disturbance, psychotic disturbance, mood disturbance, and anxiety; R62.7 Adult failure to thrive; Z68.29 Body mass index [BMI] 29.0-29.9, adult; Z74.01 Bed confinement status; Z86.19 Personal history of other infectious and parasitic diseases; Z87.440 Personal history of urinary (tract) infections
CPT/HCPCS: 36415; 70450; 71045; 76705; 80048; 80053; 81001; 82040; 82140; 82306; 82330; 82607; 82728; 82746; 82948; 83036; 83540; 83550; 83605; 83735; 83970; 84100; 84132; 84145; 84443; 85025; 86334; 86592; 87040; 87088; 92610; 93005; 94664; 97039; G0378; J0696; J1650; J2430; J2543; J3475; J3480; J7030; J7042; J7070; J7120; U0003